=== PATIENT | female | born 1985 | race Caucasian/White ===

== ENCOUNTER 2019-05-03 09:54 | Outpatient (CLI) | payer BC ==
--- NOTE | 2019-05-03 10:31 | RAD ---
PA AND LATERAL CHEST: INDICATIONS: Dyspnea. COMPARISON: Prior exam dated 03/25/2012. FINDINGS: The lungs are clear. The heart size is normal. No acute osseous abnormality is evident. IMPRESSION: No acute cardiopulmonary abnormality. POS: [facility]
== END 2019-05-03 09:55 | disposition home or self-care (01) ==
LOC: RAD 09:54
PROVIDERS: ATTEND Internal Medicine Critical Care Medicine
DX: R06.00 Dyspnea, unspecified (principal)
CPT/HCPCS: 71046